=== PATIENT | male | born 1935 | race Caucasian/White ===

== ENCOUNTER 2017-03-15 08:21 | Inpatient (IN) | payer MEDICARE ==
[2017-03-12 09:39] LABS: HEMATOCRIT 41.2 % (40.0-51.0); HEMOGLOBIN 14.2 g/dL (13.6-17.8)
[2017-03-12 09:46] LABS: ASCORBIC ACID (UR NOT ORDER) NEG (NEG); BILIRUBIN, URINE NEGATIVE (NEG); KETONE, URINE NEGATIVE (NEG); LEUKOCYTE ESTERASE(NOT OR NEG (NEG); WBC (NOT ORDERED) (RFLEX) 1 (0-5)
[2017-03-12 09:53] LABS: BUN (BLOOD UREA NITROGEN) 26 MG/DL (6-23); CHLORIDE, SERUM 104 MMOL/L (96-112); CO2 (CARBON DIOXIDE) 29 MMOL/L (24-34); CREATININE 1.21 MG/DL (0.70-1.30); GFR AFRICAN AMERICAN 66 ML/MIN (>=60); GFR NON AFRICAN AMERICAN 57 ML/MIN (>=60); GLUCOSE, SERUM 131 MG/DL (60-99); SODIUM, SERUM 140 MMOL/L (135-148)
--- NOTE | ~2017-03-15 | OP ---
Record Of Operation [facility] [address] [place]. [address] NAME: OTTO GORE : 37 STATUS : ADM IN PAT#: [id number] AGE: 81 ADM/REG DATE : 03/15/17 MR#: [id number] REPORT SERV DATE: 03/15/17 DICTATED BY: COLLIN READ DATE: 03/15/17 REPORT STATUS : Draft TRANSCRIBED BY: MODL DATE: 03/15/17 DATE OF PROCEDURE: 03/15/2017 TITLE OF OPERATIONS: Robot-assisted laparoscopic simple prostatectomy. PREOPERATIVE DIAGNOSIS: Benign prostatic hypertrophy with obstruction. POSTOPERATIVE DIAGNOSIS: Benign prostatic hypertrophy with obstruction. INDICATIONS: Mr. Gore is a 81-year-old male with a 140 g prostate and severe lower urinary tract symptoms. He is here for simple prostatectomy. ANESTHESIA: General. COMPLICATIONS: None. IMPLANTS: A 24-South African three-way Reed catheter. A #10 round COMFORT drain. SPECIMEN: Prostatic adenoma. NARRATIVE: The patient was brought to the operating room, identified by his wristband. General anesthesia was induced and Ancef was given for preoperative antibiotics. He was placed in dorsal lithotomy position, prepped and draped in a sterile fashion. His abdomen was insufflated to a pressure of 15 mmHg using a Veress needle. An 8 mm port was placed in the supraumbilical position. The abdomen was inspected. There were no adhesions. Standard X-Y port placement was performed with two 8 mm ports on the left side of the body and a fourth 8 mm port on the right side of the body. A 12-mm port was placed in the right lower quadrant and a 5-mm port was placed in the right upper quadrant for photography assistant ports. The patient was placed in Trendelenburg. The robot was docked. The bladder was dropped off the anterior abdominal wall with electrocautery. The prostate was defatted. A horizontal cystotomy was made. Intravesical adenoma was identified. It was marked with a 0 Vicryl suture. The bladder mucosa above the trigone on the adenoma was scored. This was deepened through the detrusor fibers onto the adenoma. The adenoma was traced down to the junction of the transitional and peripheral zones. Once this was identified, the dissection was carried distally from the base of the prostate to the apex. The adenoma was then carefully dissected off the capsule laterally and superiorly. The urethra was identified and transected sharply. The prostate was then removed and put into an EndoCatch bag. The mucosa was advanced into the prostatic capsule using a 3-0 V-Loc suture in a running fashion. The dorsal venous penetrators were oversewn with a 3-0 V-Loc suture in a U-shape configuration. The cystotomy was closed in two layers. The mucosal layer was closed with 3 0 V-Loc suture. Seromuscular layer was closed with a 2-0 V-Loc suture. A 24-South African 3-way Reed catheter was placed. The balloon was inflated with 40 mL of sterile water. The bladder was irrigated. The connection was water tight. The robot was undocked. A #10 COMFORT drain was placed through the left most lateral robotic port. The photography assistant port was closed with a 0 Vicryl suture using a Amari-Nadege device. The port was removed sequentially. There was no bleeding. The supraumbilical incision was enlarged at the skin and fascia Record Of Operation [address] [address] NAME: OTTO GORE : 37 STATUS : ADM IN PAT#: [id number] AGE: 81 ADM/REG DATE : 03/15/17 MR#: [id number] REPORT SERV DATE: 03/15/17 DICTATED BY: COLLIN READ DATE: 03/15/17 REPORT STATUS : Draft TRANSCRIBED BY: MODL DATE: 03/15/17 levels. The prostate adenoma and its bag was removed and sent to pathology. The fascia was closed with a #1 PDS suture in a [id number] fashion. The skin was closed with 4-0 Monocryl suture. Dermabond dressing was placed. The patient was awoken from anesthesia and transferred to the recovery room in stable condition with catheter on traction with CBI running. The urine was clear. There were no complications. NAILA/RICHARD Collin Read MD / [id number] CC: Collin K. MD Timi Read D.O. F.A.C.P.
--- NOTE | ~2017-03-15 | PREOPHP ---
PreOp History and Physical [address] [place]. [address] NAME: OTTO GORE : 37 STATUS : DIS IN PAT#: [id number] AGE: 81 ADM/REG DATE : 03/15/17 MR#: [id number] REPORT SERV DATE: 04/06/17 DICTATED BY: COLLIN PARKER DATE: 04/06/17 REPORT STATUS : Draft TRANSCRIBED BY: RICHARD DATE: 04/06/17 CHIEF COMPLAINT: BPH with obstruction. HISTORY OF PRESENT ILLNESS: Mr. Gore is a very pleasant 81-year-old male, with history of BPH with obstruction and urinary retention. Treatment options were discussed including intermittent catheterization, Reed catheter, SP tube, stage TURP or simple prostatectomy. He is here for robotic-assisted laparoscopic simple prostatectomy. PAST MEDICAL HISTORY: BPH with obstruction, urinary retention, hypertension, diabetes, arthritis, GERD, diverticulitis, depression, glaucoma, restless legs syndrome. SURGICAL HISTORY: Bilateral knee surgery, cataract surgery, left rotator cuff surgery, hernia repair, right rotator cuff surgery. SOCIAL HISTORY: He does not smoke, drink, or use illegal drugs. FAMILY HISTORY: Noncontributory. ALLERGIES: NO KNOWN DRUG ALLERGIES. MEDICATIONS: Reviewed and are on the chart. REVIEW OF SYSTEMS: A 12-point review of systems was performed. Pertinent positives listed in the HPI. PHYSICAL EXAMINATION: VITAL SIGNS: Afebrile. Vital signs stable. No acute distress. HEENT: Head is normocephalic and atraumatic. Breathing nonlabored. He is not in respiratory distress. Pulse is regular rate and rhythm. ABDOMEN: Soft, nontender, nondistended. NEURO: He is alert and oriented x3. : Normal external genitalia. EXTREMITIES: No cyanosis or edema. LABORATORY DATA: No new labs. IMAGING: No new imaging. ASSESSMENT AND PLAN: Mr. Gore has benign prostatic hyperplasia with obstruction and urinary retention. We will proceed with robotic assisted laparoscopic simple prostatectomy. Risks and benefits discussed in detail. Consents were signed. NAILA/RICHARD Collin Laurent PreOp History and Physical [address] [place]. [address] NAME: OTTO GORE : 37 STATUS : DIS IN PAT#: [id number] AGE: 81 ADM/REG DATE : 03/15/17 MR#: [id number] REPORT SERV DATE: 04/06/17 DICTATED BY: COLLIN PARKER DATE: 04/06/17 REPORT STATUS : Draft TRANSCRIBED BY: MODL DATE: 04/06/17 MD Jacek / [id number] CC: MD Timi Lockett D.O. F.A.C.P.
--- NOTE | ~2017-03-15 | DS ---
Discharge Summary [facility] [address] [place]. [address] NAME: OTTO GORE : 37 STATUS : DIS IN PAT#: [id number] AGE: 81 ADM/REG DATE : 03/15/17 MR#: [id number] REPORT SERV DATE: 04/06/17 DICTATED BY: COLLIN READ DATE: 04/06/17 REPORT STATUS : Draft TRANSCRIBED BY: RICHARD DATE: 04/06/17 ADMISSION DATE: 03/15/2017 DISCHARGE DATE: 03/18/2017 DISCHARGE DIAGNOSES: 1. Benign prostatic hypertrophy with obstruction. 2. Hypertension. DISCHARGE PROCEDURES: Robot-assisted laparoscopic simple prostatectomy. HOSPITAL COURSE: Mr. Gore is a very pleasant 81-year-old male, with BPH with obstruction. He has a very large prostate greater than 100 g. On date of admission, he underwent the above-mentioned operation. The patient tolerated the operation well. There were no complications. For full operative details, please see my operative note. Postoperatively, he was transferred to the recovery room and then to the floor in stable condition. During his hospitalization, his diet was gradually advanced to a regular diet, which he was tolerating by the time of discharge. His urine remained clear on CBI and eventually CBI was stopped, and he was discharged home with his Reed catheter. His only issue during his hospitalization was some hypertension for which the hospitalist consult was obtained. The recommendation were followed. On the day of discharge, the patient was deemed medically fit for home and was discharged to home with his drain removed and his Reed catheter in place. DISCHARGE INSTRUCTIONS: Please see my preprinted discharge instructions. FOLLOWUP: Please follow up with me in one week for Reed catheter removal. DISCHARGE MEDICATIONS: Please see discharge medicine reconciliation work sheet. NAILA/RICHARD Collin Read MD / [id number] CC: MD Timi Lockett D.O. F.A.C.P.
--- NOTE | ~2017-03-15 | CN ---
Consultation Report [place] [id number] [facility] [place]. [address] NAME: OTTO OLVERA : 37 STATUS : ADM IN [facility]#: [id number] AGE: 81 ADM/REG DATE : 03/15/17 MR#: [id number] REPORT SERV DATE: 03/16/17 DICTATED BY: LINDA KING DATE: 03/16/17 REPORT STATUS : Draft TRANSCRIBED BY: MODL DATE: 03/16/17 HOSPITALIST CONSULTATION DATE OF CONSULTATION: 03/15/2017 REASON FOR CONSULTATION: High blood pressure per Dr. Barkley. HISTORY OF PRESENT ILLNESS: This is an awake, alert, and oriented, very pleasant 81-year-old male, who was admitted today to Dr. Be Read for treatment of BPH with robotic simple prostatectomy that was completed today, 03/15/2017. We are currently postop day 0. The patient has had persistent high blood pressure since his arrival to the floor after the procedure and we have been asked to manage this condition during this course of stay. The patient does have a history of high blood pressure, for which he takes lisinopril at home without any difficulty. At this time, he denies all symptoms including chest pain, palpitations, dyspnea, headache, vision disturbances, nausea, vomiting, diarrhea, or abdominal pain. PAST MEDICAL HISTORY: Significant for: 1. Hypertension. 2. BPH. 3. Type 2 diabetes. 4. Osteoarthritis. 5. GERD. 6. Diverticulitis. 7. Depression. 8. Glaucoma. 9. Restless legs syndrome. SURGICAL HISTORY: Significant for: 1. Bilateral knee surgery, 1994. 2. Cataract surgery, 1994. 3. Left rotator cuff surgery, January 2010. 4. Right rotator cuff surgery, 2014. 5. Bilateral inguinal hernia repair, 2013. 6. Prostatectomy, 03/15/2017, as mentioned previously. The patient follows regularly with his PCP, Dr. Be Barnett. He follows with Dr. Read as his urologist. SOCIAL HISTORY: The patient is and lives at home with his . He is retired and plays golf several times per week. He is a former smoker, having quit greater than 40 years ago. He drinks alcohol socially, drinking less than three drinks per week and he denies illicit drug use. Consultation Report [place] [id number] [facility] [place]. [address] NAME: OTTO OLVERA : 37 STATUS : ADM IN PAT#: [id number] AGE: 81 ADM/REG DATE : 03/15/17 MR#: [id number] REPORT SERV DATE: 03/16/17 DICTATED BY: LINDA KING DATE: 03/16/17 REPORT STATUS : Draft TRANSCRIBED BY: MODMarco A DATE: 03/16/17 FAMILY HISTORY: Significant for father in 1979 at the age of 69 due to heart problems. Father also had severe arthritis. His mother is still living at 98 years old. She lives independently and has no known health problems. The patient has a brother who has diabetes mellitus as well as heart problems including having a defibrillator. ALLERGIES: NO KNOWN ALLERGIES. HOME MEDICATIONS: Include: 1. Aspirin 325 mg p.o. daily. 2. Dorzolamide/timolol ophthalmic solution one drop each eye twice a day. 3. Lisinopril 10 mg p.o. daily. 4. Glucophage 500 mg p.o. twice daily. 5. Protonix 40 mg p.o. q.a.m. 6. Requip 0.5 mg p.o. q.h.s. 7. Zoloft 50 mg p.o. q.h.s. 8. Flomax 0.4 mg p.o. q.h.s. REVIEW OF SYSTEMS: A complete 10-point review of systems was negative except as per HPI. PHYSICAL EXAMINATION: VITAL SIGNS: T 96.8, P 78, RR 18, BP 180/70, SpO2 98% on 2 L nasal cannula. GENERAL: Well-appearing male, in no acute distress. NEUROLOGIC: Awake, alert, and oriented x3 without focal deficit. HEENT: Normocephalic, atraumatic without lymphadenopathy. NECK: Supple. No JVD. LUNGS: CTA in all lung castillo with normal respiratory effort. CV: Regular rate and rhythm. S1, S2 auscultated without murmur, rub, gallop, or click. ABDOMEN: Soft, round, nontender with active bowel sounds in all quadrants. No masses. COMFORT drain to bulb suction. EXTREMITIES: No cyanosis or edema. Cap refill within normal limits. Normal distal pulses. PSYCH: Normal affect. SKIN: Clean, dry, and intact with mucous membranes pink and moist. PERTINENT LABORATORY DATA: Include BUN and creatinine of 21 and 1.06, serum glucose is 151. ASSESSMENT AND PLAN: 1. Hypertension. This is chronic. We will continue his current treatment and add p.r.n. IV antihypertensives. We will monitor his labs and his vital signs. 2. Type 2 diabetes mellitus. This is chronic, for which he follows regularly with his PCP and is well controlled on oral agents. We will continue the current treatment that was initiated by the primary team and monitor his labs. 3. Gastroesophageal reflux disease. Again, chronic and well controlled on his current medications, which will be continued as initiated by the primary team and monitor labs. 4. Depression. Again, chronic and well controlled. We will continue the current Consultation Report [address] [place]. [address] NAME: OTTO OLVERA : 37 STATUS : ADM IN [facility]#: [id number] AGE: 81 ADM/REG DATE : 03/15/17 MR#: [id number] REPORT SERV DATE: 03/16/17 DICTATED BY: LINDA KING DATE: 03/16/17 REPORT STATUS : Draft TRANSCRIBED BY: MODMarco A DATE: 03/16/17 treatment that was initiated by primary team and monitor. 5. Restless legs syndrome. Again, chronic and well controlled. Continuing current treatment was initiated by the primary team and monitor. 6. Post prostatectomy that was completed on 03/15/2017, at postop day 0. We will defer management of this condition to the primary team. Thank you for this consult. We are pleased to follow this patient with you. This consult was completed through thorough review of [employer], old records, [employer], and current chart as well as thorough interview with the patient and his . [facility]/RICHARD Linda King NP / [id number] CC: MD Timi Lockett D.O. F.A.C.P.
[~2017-03-15 08:21] MED LIST: ASA5GR PO; COSOPT OPH; FLOMAX4 PO; GLUCPH PO; PRIN10 PO; PROTONIX PO; REQUIP5 PO; SAW PALMETTO PO; TRAVATAN Z0.004 % OPH; ZOL50 PO; [UNRECOGNIZED DRUG - OTHER] PO
[2017-03-15 15:25] LABS: BASOPHILS 0 %; EOSINOPHILS 0.1 %; EOSINOPHILS ABSOLUTE 0.01 10/3/uL (0.0-0.53); HEMATOCRIT 41.7 % (40.0-51.0); HEMOGLOBIN 14.3 g/dL (13.6-17.8); IMMATURE GRANULOCYTES 0.2 %; IMMATURE GRANULOCYTES ABSOLUTE 0.02 10/3/uL (0.0-0.11); MANUAL DIFF NO %; MEAN CORPUS HGB CONC 34.3 g/dL (32.0-36.0); MEAN CORPUSCULAR HEMOGLOB 31.4 pg (26.0-34.0); MEAN CORPUSCULAR VOLUME 91.4 fL (80-100); MEAN PLATELET VOLUME 10.6 fL (9.2-13.0); MONOCYTES 1.4 %; MONOCYTES ABSOLUTE 0.13 10/3/uL (0.21-1.20); NEUTROPHILS 88.3 %; NEUTROPHILS ABSOLUTE 7.95 10/3/uL (2.02-8.40); PLATELET COUNT 136 10/3/uL (150-400); RBC DISTRIBUTION WIDTH 13.5 % (12.0-16.0); RED CELL COUNT 4.56 10/6/uL (4.7-6.1)
[2017-03-15 15:33] LABS: CALCIUM, SERUM 8.5 MG/DL (8.5-10.4); CHLORIDE, SERUM 106 MMOL/L (96-112); CO2 (CARBON DIOXIDE) 26 MMOL/L (24-34); CREATININE 1.06 MG/DL (0.70-1.30); GFR AFRICAN AMERICAN 77 ML/MIN (>=60); GFR NON AFRICAN AMERICAN 66 ML/MIN (>=60); GLUCOSE, SERUM 151 MG/DL (60-99); POTASSIUM, SERUM 4.3 MMOL/L (3.5-5.3); SODIUM, SERUM 140 MMOL/L (135-148)
[2017-03-15 15:34] LABS: BUN (BLOOD UREA NITROGEN) 21 MG/DL (6-23)
[2017-03-16 07:26] LABS: BASOPHILS 0 %; EOSINOPHILS 0 %; HEMATOCRIT 44.7 % (40.0-51.0); HEMOGLOBIN 15.4 g/dL (13.6-17.8); IMMATURE GRANULOCYTES 0.4 %; IMMATURE GRANULOCYTES ABSOLUTE 0.06 10/3/uL (0.0-0.11); LYMPHOCYTES 7.6 %; LYMPHOCYTES ABSOLUTE 1.19 10/3/uL (0.67-4.30); MEAN CORPUS HGB CONC 34.5 g/dL (32.0-36.0); MEAN CORPUSCULAR HEMOGLOB 31.6 pg (26.0-34.0); MEAN CORPUSCULAR VOLUME 91.8 fL (80-100); MEAN PLATELET VOLUME 10.7 fL (9.2-13.0); MONOCYTES 6.7 %; MONOCYTES ABSOLUTE 1.05 10/3/uL (0.21-1.20); NEUTROPHILS 85.3 %; NEUTROPHILS ABSOLUTE 13.45 10/3/uL (2.02-8.40); RBC DISTRIBUTION WIDTH 13.3 % (12.0-16.0); RED CELL COUNT 4.87 10/6/uL (4.7-6.1)
[2017-03-16 07:28] LABS: MANUAL DIFF NO %; PLATELET COUNT 182 10/3/uL (150-400); WHITE BLOOD CELLS 15.8 10/3/uL (4.5-10.5)
[2017-03-16 07:37] LABS: A/G RATIO 0.8 (0.7-1.9); ALBUMIN 3.5 G/DL (3.5-5.0); ALKALINE PHOSPHATASE 77 U/L (45-117); CHLORIDE, SERUM 103 MMOL/L (96-112); CO2 (CARBON DIOXIDE) 26 MMOL/L (24-34); CREATININE 1.29 MG/DL (0.70-1.30); GFR AFRICAN AMERICAN 61 ML/MIN (>=60); GFR NON AFRICAN AMERICAN 52 ML/MIN (>=60); GLOBULIN 4.3 G/DL (2.5-4.1); GLUCOSE, SERUM 174 MG/DL (60-99); SGOT(AST) 8 U/L (5-40); SGPT(ALT) 14 U/L (5-65); SODIUM, SERUM 136 MMOL/L (135-148); TOTAL BILIRUBIN 0.7 MG/DL (0-1.2); TOTAL PROTEIN 7.8 G/DL (6.0-8.5)
[2017-03-16 07:38] LABS: BUN (BLOOD UREA NITROGEN) 16 MG/DL (6-23)
[2017-03-17 05:27] LABS: BASOPHILS 0 %; EOSINOPHILS 0 %; HEMATOCRIT 43.1 % (40.0-51.0); HEMOGLOBIN 14.9 g/dL (13.6-17.8); IMMATURE GRANULOCYTES 0.5 %; IMMATURE GRANULOCYTES ABSOLUTE 0.07 10/3/uL (0.0-0.11); LYMPHOCYTES 9.5 %; LYMPHOCYTES ABSOLUTE 1.47 10/3/uL (0.67-4.30); MANUAL DIFF NO %; MEAN CORPUS HGB CONC 34.6 g/dL (32.0-36.0); MEAN CORPUSCULAR HEMOGLOB 31.5 pg (26.0-34.0); MEAN CORPUSCULAR VOLUME 91.1 fL (80-100); MEAN PLATELET VOLUME 10.7 fL (9.2-13.0); MONOCYTES 8.1 %; MONOCYTES ABSOLUTE 1.26 10/3/uL (0.21-1.20); NEUTROPHILS 81.9 %; NEUTROPHILS ABSOLUTE 12.75 10/3/uL (2.02-8.40); PLATELET COUNT 177 10/3/uL (150-400); RBC DISTRIBUTION WIDTH 13.4 % (12.0-16.0); RED CELL COUNT 4.73 10/6/uL (4.7-6.1); WHITE BLOOD CELLS 15.6 10/3/uL (4.5-10.5)
[2017-03-17 05:47] LABS: BUN (BLOOD UREA NITROGEN) 15 MG/DL (6-23); CHLORIDE, SERUM 104 MMOL/L (96-112); CO2 (CARBON DIOXIDE) 25 MMOL/L (24-34); CREATININE 1.01 MG/DL (0.70-1.30); GFR AFRICAN AMERICAN 82 ML/MIN (>=60); GFR NON AFRICAN AMERICAN 70 ML/MIN (>=60); GLUCOSE, SERUM 164 MG/DL (60-99); POTASSIUM, SERUM 4.4 MMOL/L (3.5-5.3); SODIUM, SERUM 135 MMOL/L (135-148)
[2017-03-18 06:07] LABS: BUN (BLOOD UREA NITROGEN) 17 MG/DL (6-23); CALCIUM, SERUM 8.7 MG/DL (8.5-10.4); CHLORIDE, SERUM 99 MMOL/L (96-112); CO2 (CARBON DIOXIDE) 26 MMOL/L (24-34); CREATININE 0.89 MG/DL (0.70-1.30); GFR AFRICAN AMERICAN 94 ML/MIN (>=60); GFR NON AFRICAN AMERICAN 81 ML/MIN (>=60); GLUCOSE, SERUM 151 MG/DL (60-99); POTASSIUM, SERUM 3.9 MMOL/L (3.5-5.3); SODIUM, SERUM 132 MMOL/L (135-148)
[2017-03-18] MEDS ORDERED: PCET PO (09:40)
[2017-03-18] MEDS ORDERED: DSS PO (09:40)
[2017-03-18] MEDS ORDERED: MACROBID PO (09:41)
[2017-03-18] MEDS ORDERED: NORV5 PO (10:54)
== END 2017-03-18 11:33 | disposition home or self-care (01) | DRG 707 ==
LOC: SDC/OF 08:21 → 4SO 14:45
PROVIDERS: Internal Medicine; Urology
PROC: 8E0W4CZ Robotic Assisted Procedure of Trunk Region, Percutaneous Endoscopic Approach (ICD-10-PCS; 2017-03-15)
PROC: 0VT04ZZ Resection of Prostate, Percutaneous Endoscopic Approach (ICD-10-PCS; principal; 2017-03-15 10:30)
DX: N40.1 Benign prostatic hyperplasia with lower urinary tract symptoms (principal); N13.8 Other obstructive and reflux uropathy; E11.22 Type 2 diabetes mellitus with diabetic chronic kidney disease; K21.9 Gastro-esophageal reflux disease without esophagitis; I12.9 Hypertensive chronic kidney disease with stage 1 through stage 4 chronic kidney disease, or unspecified chronic kidney disease; N18.1 Chronic kidney disease, stage 1; G25.81 Restless legs syndrome; H40.9 Unspecified glaucoma; F32.9 Major depressive disorder, single episode, unspecified; Z87.891 Personal history of nicotine dependence; Z79.82 Long term (current) use of aspirin; Z79.84 Long term (current) use of oral hypoglycemic drugs; Z79.899 Other long term (current) drug therapy
CPT/HCPCS: 36415; 80048; 80053; 81001; 82570; 82962; 85014; 85018; 85025; 86850; 86900; 86901; 88307; 93005; A9270-GY; C1713; J0360; J0690; J1170; J2250; J2405; J2550; J2710; J2795; J3010